=== PATIENT | female | born 1960 | race Caucasian/White ===

== ENCOUNTER 2018-01-15 21:10 | Inpatient (IN) | payer OTHER ==
[~2018-01-15] VITALS: Ht 162.6 cm; Wt 91.5 kg
[2018-01-15 22:34] LABS: HEMATOCRIT 37.6 % (36.0-46.0); HEMOGLOBIN 13.3 G/DL (11.9-15.5); MCH 30.2 PG (29.0-34.0); MCHC 35.4 G/DL (30.0-36.0); MCV 85.3 FL (83-99); PLATELET COUNT 289 K/uL (156-360); RBC DIS.WIDTH-CV 12.8 % (11.8-14.6); RBC DIS.WIDTH-SD 39.8 % (39-53); RED BLOOD COUNT 4.41 M/uL (3.80-5.20)
[2018-01-15 22:46] LABS: ALBUMIN 4.2 g/dL (3.2-4.8); CHLORIDE 101 mEq/L (99-109); POTASSIUM 3.5 mEq/L (3.7-5.4); SODIUM 140 mEq/L (136-147)
[2018-01-15 22:48] LABS: GLUCOSE 120 mg/dL (70-99)
[2018-01-15 22:49] LABS: TOTAL PROTEIN 7.5 g/dL (6.4-8.3)
[2018-01-15 22:50] LABS: TOTAL BILIRUBIN 0.7 mg/dL (0.0-1.0)
[2018-01-15 22:52] LABS: ALKALINE PHOSPHATASE 123 IU/L (3-129); CREATININE 0.9 mg/dL (0.6-1.3); GFR ESTIMATE (CALCULATED) > 59 mL/min/
[2018-01-15 22:53] LABS: UREA NITROGEN (BUN) 11 mg/dL (9-23)
[2018-01-15 22:54] LABS: AST (GOT) 27 IU/L (2-34)
[2018-01-15 22:55] LABS: ALT (GPT) 32 IU/L (3-49); LIPASE 2 U/L (1.0-51.0)
[2018-01-16 00:23] LABS: APPEARANCE SL.HAZY ((CLEAR)); BILIRUBIN SMALL; BLOOD NEGATIVE; COLOR YELLOW ((YELLOW)); GLUCOSE (STRIP) NEGATIVE; KETONES NEGATIVE; LEUKOCYTES TRACE; NITRITE NEGATIVE; PROTEIN (STRIP) 30
[2018-01-16 00:35] LABS: BACTERIA RARE /HPF; EPITHELIAL CELLS RARE /HPF; HYALINE CASTS 15-20 /LPF; MUCUS TRACE /LPF; RED BLOOD CELLS 0-5 /HPF (0-5); UCUL ADDED? YES
[2018-01-16] MEDS ORDERED: ZESTORETIC 20-1 EAC1 PO (01:15)
[2018-01-16] MEDS ORDERED: INDERAL LA80 MG PO (01:15)
[2018-01-16] MEDS ORDERED: PRILOSEC20 MG PO (01:16)
[2018-01-16 03:40] VITALS: BP 141/76
[2018-01-16 07:10] VITALS: BP 122/71
[2018-01-16 07:21] LABS: HEMATOCRIT 33.6 % (36.0-46.0); HEMOGLOBIN 11.5 G/DL (11.9-15.5); MCH 29.3 PG (29.0-34.0); MCHC 34.2 G/DL (30.0-36.0); MCV 85.5 FL (83-99); PLATELET COUNT 252 K/uL (156-360); RBC DIS.WIDTH-CV 12.7 % (11.8-14.6); RED BLOOD COUNT 3.93 M/uL (3.80-5.20); WHITE BLOOD COUNT 11.4 K/uL (4.1-10.2)
[2018-01-16 07:45] LABS: ALBUMIN 3.5 G/DL (3.2-4.8); ALKALINE PHOSPHATASE 92 IU/L (3-129); ALT (GPT) 22 IU/L (3-49); AST (GOT) 17 IU/L (2-34); C-REACTIVE PROTEIN 155.5 MG/L (0-10); CHLORIDE 104 MEQ/L (99-109); CREATININE 0.9 MG/DL (0.6-1.3); GFR ESTIMATE (CALCULATED) > 59 mL/min/; GLUCOSE 122 mg/dL (70-99); POTASSIUM 3.4 MEQ/L (3.7-5.4); SODIUM 143 MEQ/L (136-147); TOTAL BILIRUBIN 0.5 MG/DL (0.0-1.0); TOTAL PROTEIN 5.6 G/DL (6.4-8.3); UREA NITROGEN (BUN) 10 mg/dL (9-23)
[2018-01-16 10:54] VITALS: BP 116/68
[2018-01-16 15:19] VITALS: BP 161/80
[2018-01-16 19:55] VITALS: BP 123/71
[2018-01-17] VITALS: BP 121/60
[2018-01-17 03:37] VITALS: BP 120/65
[2018-01-17 06:42] LABS: BASOPHIL (%) 0.8 % (0-1); BASOPHIL COUNT 0.1 K/uL (0-0.1); EOSINOPHIL (%) 3.2 % (0-5); EOSINOPHIL COUNT 0.3 K/uL (0-0.3); HEMATOCRIT 37.4 % (36.0-46.0); HEMOGLOBIN 12.4 G/DL (11.9-15.5); IMMATURE GRANULOCYTE (%) 0.6 % (0.0-0.7); LYMPHOCYTE (%) 26.5 % (15-42); LYMPHOCYTE COUNT 2.3 K/uL (1.0-2.8); MCH 28.5 PG (29.0-34.0); MCHC 33.2 G/DL (30.0-36.0); MONOCYTE COUNT 0.6 K/uL (0-0.8); NEUTROPHIL (%) 61.9 % (45-76); NEUTROPHIL COUNT 5.3 K/uL (1.8-6.4); PLATELET COUNT 313 K/uL (156-360); RBC DIS.WIDTH-CV 12.6 % (11.8-14.6); RBC DIS.WIDTH-SD 39.6 % (39-53); RED BLOOD COUNT 4.35 M/uL (3.80-5.20); WHITE BLOOD COUNT 8.6 K/uL (4.1-10.2)
[2018-01-17 07:08] VITALS: BP 117/69
[2018-01-17 07:10] LABS: CHLORIDE 101 MEQ/L (99-109); CREATININE 0.7 MG/DL (0.6-1.3); GFR ESTIMATE (CALCULATED) > 59 mL/min/; GLUCOSE 128 mg/dL (70-99); POTASSIUM 3.9 MEQ/L (3.7-5.4); SODIUM 141 MEQ/L (136-147); UREA NITROGEN (BUN) 10 mg/dL (9-23)
[2018-01-17] MEDS ORDERED: COLACE100 MG PO (09:46)
[2018-01-17] MEDS ORDERED: PERCOCET 5/31 TABLET PO (09:46)
[2018-01-17] MEDS ORDERED: AUGMENTIN875 MG PO (09:46)
[2018-01-17] MEDS ORDERED: NICODERM CQ1 EAC2 TD (09:50)
[2018-01-17 11:17] VITALS: BP 138/92
== END 2018-01-17 11:30 | disposition home or self-care (01) | DRG 373 ==
LOC: EME 21:10 → EDOF 01-16 01:59 → 2EAST 01-16 01:59 → ENRESERV 01-16 02:05 → 2EAST 01-16 02:55
PROVIDERS: Student in an Organized Health Care Education/Training Program
DX: K35.3 Acute appendicitis with localized peritonitis (principal); E66.9 Obesity, unspecified; Z68.34 Body mass index [BMI] 34.0-34.9, adult; I10 Essential (primary) hypertension; K21.9 Gastro-esophageal reflux disease without esophagitis; K80.20 Calculus of gallbladder without cholecystitis without obstruction; F17.210 Nicotine dependence, cigarettes, uncomplicated; Z71.6 Tobacco abuse counseling; Z71.3 Dietary counseling and surveillance
CPT/HCPCS: 74177; 80048; 80053; 81003; 83690; 85025; 85027; 86140; 87086; 99281; 99285; J7040; J7120; S0074

== ENCOUNTER 2018-01-21 14:22 | Day surgery (SDC) | payer OTHER ==
[~2018-01-21] VITALS: Ht 162.6 cm; Wt 89.6 kg
[~2018-01-21 14:22] MED LIST: AUGMENTIN875 MG PO; COLACE100 MG PO; INDERAL LA80 MG PO; NICODERM CQ1 EAC2 TD; PERCOCET 5/31 TABLET PO; PRILOSEC20 MG PO; ZESTORETIC 20-1 EAC1 PO
[2018-01-21 15:03] LABS: HEMATOCRIT 40.1 % (36.0-46.0); HEMOGLOBIN 14.2 G/DL (11.9-15.5); MCH 29.6 PG (29.0-34.0); MCHC 35.4 G/DL (30.0-36.0); MCV 83.7 FL (83-99); PLATELET COUNT 361 K/uL (156-360); RBC DIS.WIDTH-CV 12.4 % (11.8-14.6); RBC DIS.WIDTH-SD 37.8 % (39-53); RED BLOOD COUNT 4.79 M/uL (3.80-5.20); WHITE BLOOD COUNT 14.8 K/uL (4.1-10.2)
[2018-01-21 15:17] LABS: ALBUMIN 4.5 g/dL (3.2-4.8); CHLORIDE 101 mEq/L (99-109); POTASSIUM 3.6 mEq/L (3.7-5.4); SODIUM 143 mEq/L (136-147)
[2018-01-21 15:19] LABS: GLUCOSE 115 mg/dL (70-99)
[2018-01-21 15:20] LABS: TOTAL PROTEIN 8.1 g/dL (6.4-8.3)
[2018-01-21 15:23] LABS: ALKALINE PHOSPHATASE 127 IU/L (3-129); CREATININE 0.9 mg/dL (0.6-1.3); GFR ESTIMATE (CALCULATED) > 59 mL/min/
[2018-01-21 15:24] LABS: UREA NITROGEN (BUN) 8 mg/dL (9-23)
[2018-01-21 15:25] LABS: AST (GOT) 17 IU/L (2-34)
[2018-01-21 15:26] LABS: ALT (GPT) 19 IU/L (3-49)
[2018-01-21 15:28] LABS: TOTAL BILIRUBIN 0.4 mg/dL (0.0-1.0)
[2018-01-21 16:20] LABS: APPEARANCE CLEAR ((CLEAR)); BILIRUBIN NEGATIVE; BLOOD NEGATIVE; COLOR YELLOW ((YELLOW)); GLUCOSE (STRIP) NEGATIVE; KETONES NEGATIVE; LEUKOCYTES NEGATIVE; NITRITE NEGATIVE; PROTEIN (STRIP) NEGATIVE; SPECIFIC GRAVITY 1.008 (1.000-1.030); UCUL ADDED? NO; UROBILINOGEN 0.2 MG/DL (0.2-1.0)
[2018-01-21] MEDS ORDERED: AUGMENTIN875 MG PO (16:48)
[2018-01-21 20:23] VITALS: BP 129/77
[2018-01-21 23:48] VITALS: BP 112/71
[2018-01-22 03:56] VITALS: BP 127/66
[2018-01-22 07:50] LABS: BASOPHIL (%) 0.2 % (0-1); EOSINOPHIL (%) 0.1 % (0-5); HEMATOCRIT 32.6 % (36.0-46.0); IMMATURE GRANULOCYTE (%) 0.6 % (0.0-0.7); LYMPHOCYTE (%) 11.2 % (15-42); LYMPHOCYTE COUNT 1.4 K/uL (1.0-2.8); MCH 29.8 PG (29.0-34.0); MCHC 35.6 G/DL (30.0-36.0); MCV 83.8 FL (83-99); MONOCYTE (%) 4.7 % (3-12); MONOCYTE COUNT 0.6 K/uL (0-0.8); NEUTROPHIL (%) 83.2 % (45-76); NEUTROPHIL COUNT 10.5 K/uL (1.8-6.4); PLATELET COUNT 281 K/uL (156-360); RBC DIS.WIDTH-CV 12.6 % (11.8-14.6); RED BLOOD COUNT 3.89 M/uL (3.80-5.20); WHITE BLOOD COUNT 12.6 K/uL (4.1-10.2)
[2018-01-22 07:53] LABS: HEMOGLOBIN 11.6 G/DL (11.9-15.5)
[2018-01-22 08:03] LABS: CHLORIDE 103 MEQ/L (99-109); CREATININE 0.6 MG/DL (0.6-1.3); GFR ESTIMATE (CALCULATED) > 59 mL/min/; GLUCOSE 127 mg/dL (70-99); POTASSIUM 3.5 MEQ/L (3.7-5.4); SODIUM 139 MEQ/L (136-147); UREA NITROGEN (BUN) 9 mg/dL (9-23)
[2018-01-22 08:42] VITALS: BP 99/67
[2018-01-22 12:00] VITALS: BP 103/58
[2018-01-22 15:59] VITALS: BP 128/62
[2018-01-22 19:46] VITALS: BP 129/63
[2018-01-23 00:55] VITALS: BP 108/58
[2018-01-23 04:41] VITALS: BP 129/77
[2018-01-23 08:03] VITALS: BP 130/68
[2018-01-23] MEDS ORDERED: PERCOCET 5/31 TABLET PO (09:56)
[2018-01-23] MEDS ORDERED: LEVAQUIN750 MG PO (09:56)
[2018-01-23] MEDS ORDERED: COLACE100 MG PO (09:56)
== END 2018-01-23 15:31 | disposition home or self-care (01) ==
LOC: EME 14:22 → SDC 17:24 → 2SOUTH 18:44 → 2EASTP 18:44 → ENRESERV 18:55 → 2EASTP 20:16 → ENPENDDIS 01-23 → 2EASTP 01-23 15:31
PROVIDERS: Student in an Organized Health Care Education/Training Program
PROC: 0DTJ4ZZ Resection of Appendix, Percutaneous Endoscopic Approach (ICD-10-PCS; principal; 2018-01-21)
DX: K35.3 Acute appendicitis with localized peritonitis (principal); K66.0 Peritoneal adhesions (postprocedural) (postinfection); E66.9 Obesity, unspecified; Z68.33 Body mass index [BMI] 33.0-33.9, adult; I10 Essential (primary) hypertension; K21.9 Gastro-esophageal reflux disease without esophagitis; F17.200 Nicotine dependence, unspecified, uncomplicated
CPT/HCPCS: 80048; 80053; 81003; 85025; 85027; 87070; 87075; 87076; 87077; 87185; 87186; 87205; 88304; 93005; 99281; 99285; G0378; J0131; J1100; J1170; J1650; J1885; J2405; J3010; J7120; S0020; S0074

== ENCOUNTER 2018-02-11 08:47 | Day surgery (SDC) | payer OTHER ==
[~2018-02-11] VITALS: Ht 162.6 cm; Wt 83.9 kg
[~2018-02-11 08:47] MED LIST changes: -INDERAL LA80 MG PO; +INDERAL XL80 MG PO; +LEVAQUIN750 MG PO
[2018-02-11 09:07] VITALS: BP 129/68
[2018-02-11] MEDS ORDERED: HYDROCODON-ACE1 EAC7 PO (14:03)
[2018-02-11 16:40] VITALS: BP 119/56
[2018-02-11 17:47] VITALS: BP 126/72
== END 2018-02-11 18:22 | disposition home or self-care (01) ==
LOC: SDC 08:47
PROVIDERS: Student in an Organized Health Care Education/Training Program
PROC: 0FT44ZZ Resection of Gallbladder, Percutaneous Endoscopic Approach (ICD-10-PCS; principal; 2018-02-11)
DX: K80.10 Calculus of gallbladder with chronic cholecystitis without obstruction (principal); K44.9 Diaphragmatic hernia without obstruction or gangrene; I10 Essential (primary) hypertension; E11.9 Type 2 diabetes mellitus without complications; R94.31 Abnormal electrocardiogram [ECG] [EKG]; E66.9 Obesity, unspecified; Z68.31 Body mass index [BMI] 31.0-31.9, adult; F17.200 Nicotine dependence, unspecified, uncomplicated
CPT/HCPCS: 82948; 88304; J0131; J0690; J1100; J1170; J1885; J2250; J2405; J2710; J3010; J7643; Q0175; S0020